=== PATIENT | female | born 1995 | race Caucasian/White ===

== ENCOUNTER 2018-01-01 12:33 | Emergency (ER) | payer BC, SELFPAY ==
[2018-01-01 12:34] VITALS: BP 120/85; PULSE 73; RESP 15; TEMP 36.7; O2SAT 96; BMI 21.4
[2018-01-01 13:04] VITALS: BP 125/70; PULSE 75; RESP 14; O2SAT 98
--- NOTE | 2018-01-01 13:39 | ED.VISSUMM ---
- ER Visit Summary Date of Service: 01/01/18 Chief Complaint: Possible foreign body right heel History of Present Illness: The patient is a 22 F history. 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 About 2 weeks ago she was walking barefoot in her room and remember stepping on something. The liver foot bled but at that time she thought was just a puncture wound. Now she has more pain with walking. Denies fever. Denies redness. Denies discharge. She was seen today at the [facility] and sent up to the ER for evaluation. Physical Examination: Well-appearing young female. No acute distress. Vital signs stable afebrile. HEENT exam unremarkable. Lungs clear to auscultation. Heart regular rhythm no murmur. Otherwise exam unremarkable except the bottom of her right heel has a small 1 cm laceration which is closed. There is mild tenderness to palpation. No redness. No warmth. No obvious foreign body. The foot otherwise is nonswollen and nontender. Normal DP pulse. Able to wiggle all of her toes. Normal sensation. The foot is neurovascularly intact. Test Results: Right foot x-ray shows no acute abnormality. No foreign body is noted. I did go over this with the patient and she does understand that certain foreign bodies may not be radiopaque and we may not see them. I also spoke to the patient's mother via phone. She does want me to open the wound and see if there is any foreign body. Let will be applied to her heel. Local subcu lidocaine. I will make an incision and probed for any foreign body. I was able to find a remove a small splinter of glass. I then irrigated the wound and probed further and could not find any other foreign bodies. I discussed this with the patient and her mother. They understand if she feels any further foreign body she will need to follow-up. Emergency Department Course and Treatment: Keflex p.o. here. Treatment Plan: Patient be started on Keflex 4 times daily. Return if getting worse. Disposition: Discharge Impression: Acute right foot puncture wound with soft tissue infection ER removal of glass foreign body This note was generated with [employer] software. It may contain incorrect words, spelling, and punctuation that were not noted in review of the chart prior to signing ED Disposition - Plan for ED Patient: Disposition: Home or Assisted Living Chief Complaint: Foreign Body Instructions: ED Wound Puncture Foot Prescriptions: Cephalexin [Keflex] 500 mg PO Q6 #30 cap Referrals: Damian Oakley DPM [STAFF PHYSICIAN] - 3-5 Days if not improving Additional Instructions: Warm soaks. Ice and elevate right foot to decrease falling. Motrin and Tylenol for pain. Keflex 1 pill 4 times a day for infection till gone. Follow-up with the room worker Dr. Damian Oakley if not improving for further evaluation.
--- NOTE | 2018-01-01 13:42 | ED.DCSUM_ITS ---
- ER Visit Summary Date of Service: 01/01/18 Chief Complaint: Possible foreign body right heel History of Present Illness: The patient is a 22 F history. 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 About 2 weeks ago she was walking barefoot in her room and remember stepping on something. The liver foot bled but at that time she thought was just a puncture wound. Now she has more pain with walking. Denies fever. Denies redness. Denies discharge. She was seen today at the [facility] and sent up to the ER for evaluation. Physical Examination: Well-appearing young female. No acute distress. Vital signs stable afebrile. HEENT exam unremarkable. Lungs clear to auscultation. Heart regular rhythm no murmur. Otherwise exam unremarkable except the bottom of her right heel has a small 1 cm laceration which is closed. There is mild tenderness to palpation. No redness. No warmth. No obvious foreign body. The foot otherwise is nonswollen and nontender. Normal DP pulse. Able to wiggle all of her toes. Normal sensation. The foot is neurovascularly intact. Test Results: Right foot x-ray shows no acute abnormality. No foreign body is noted. I did go over this with the patient and she does understand that certain foreign bodies may not be radiopaque and we may not see them. I also spoke to the patient's mother via phone. She does want me to open the wound and see if there is any foreign body. Let will be applied to her heel. Local subcu lidocaine. I will make an incision and probed for any foreign body. I was able to find a remove a small splinter of glass. I then irrigated the wound and probed further and could not find any other foreign bodies. I discussed this with the patient and her mother. They understand if she feels any further foreign body she will need to follow-up. Emergency Department Course and Treatment: Keflex p.o. here. Treatment Plan: Patient be started on Keflex 4 times daily. Return if getting worse. Disposition: Discharge Impression: Acute right foot puncture wound with soft tissue infection ER removal of glass foreign body This note was generated with [employer] software. It may contain incorrect words, spelling, and punctuation that were not noted in review of the chart prior to signing ED Disposition - Plan for ED Patient: Disposition: Home or Assisted Living Chief Complaint: Foreign Body Instructions: ED Wound Puncture Foot Prescriptions: Cephalexin [Keflex] 500 mg PO Q6 #30 cap Referrals: Damian Oakley DPM [STAFF PHYSICIAN] - 3-5 Days if not improving Additional Instructions: Warm soaks. Ice and elevate right foot to decrease falling. Motrin and Tylenol for pain. Keflex 1 pill 4 times a day for infection till gone. Follow-up with the soil expert Dr. Damian Oakley if not improving for further evaluation.
--- NOTE | 2018-01-01 14:16 | RAD_ITS ---
STUDY: X-RAY - RIGHT FOOT CLINICAL: Female, 22 years old. Heel pain. Possible foreign body. TECHNIQUE: 3 view(s) of the foot. COMPARISON: None. FINDINGS: Normal talus, calcaneus, and tarsal bones. Normal visualized subtalar, talonavicular, calcaneocuboid, tarsal and tarsometatarsal articulations. Normal metatarsi. Normal metatarsophalangeal joint of the great toe. Normal tibial and fibular sesamoid bones. Normal interphalangeal joint of the great toe. Normal phalanges of the great toe. Normal second through fifth metatarsophalangeal joints. Normal interphalangeal joints and phalanges of the lesser toes. The soft tissue structures are unremarkable. RAD/Foot min 3 Views IMPRESSION: Normal x-ray examination of the foot. Electronically Signed: Suarj Vinson MD at 14:51 EDT Tel [phone], Service support ,
[2018-01-01 15:05] VITALS: BP 118/74; PULSE 70; RESP 14; O2SAT 98
[2018-01-01 15:57] VITALS: BP 112/80; PULSE 68; RESP 14; O2SAT 98
--- NOTE | 2018-01-01 16:05 | DCINST.ED_ITS ---
ED Disposition - Plan for ED Patient: Disposition: Home or Assisted Living Chief Complaint: Foreign Body Instructions: ED Wound Puncture Foot Prescriptions: Cephalexin [Keflex] 500 mg PO Q6 #30 cap Referrals: Damian Oakley DPM [STAFF PHYSICIAN] - 3-5 Days if not improving Additional Instructions: Warm soaks. Ice and elevate right foot to decrease falling. Motrin and Tylenol for pain. Keflex 1 pill 4 times a day for infection till gone. Follow-up with the chemical milling processor Dr. Damian Oakley if not improving for further evaluation.
[2018-01-01 17:13] VITALS: BP 133/70; PULSE 74; RESP 14; O2SAT 98
[2018-01-01] MEDS: Lidocaine/Epi/Tetracaine 50 ML 1 APPLIC TOPICAL (17:54)
[2018-01-01] MEDS: Cephalexin 250 MG Capsule 500 MG PO (17:54)
== END 2018-01-01 17:59 | disposition home or self-care (01) ==
PROVIDERS: Emergency Provider Emergency Medicine
DX: S91.341A Puncture wound with foreign body, right foot, initial encounter (principal); L08.9 Local infection of the skin and subcutaneous tissue, unspecified; B96.89 Other specified bacterial agents as the cause of diseases classified elsewhere; W22.09XA Striking against other stationary object, initial encounter; Y93.89 Activity, other specified; Y92.214 College as the place of occurrence of the external cause
CPT/HCPCS: 10120; 73630; 99283